=== PATIENT | female | born 1965 | race Caucasian/White ===

== ENCOUNTER 2016-09-23 05:59 | Day surgery (SDC) | payer OTHER ==
[2016-09-23 06:15] VITALS: O2SAT 98
[2016-09-23] MEDS ORDERED: Lactated Ringers 1,000 ML IV SCH (06:30)
[2016-09-23 08:04] VITALS: PULSE 60
[2016-09-23 08:20] VITALS: BP 109/72
--- NOTE | 2016-09-23 08:46 | OP ---
SURGERY DATE: 09/23/16 SURGERY TIME: 709 PREOPERATIVE DIAGNOSIS: 1. SCREENING COLONOSCOPY. POSTOPERATIVE DIAGNOSIS: 1. NORMAL COLON. PROCEDURE: 1. Colonoscopy. SURGEON: Dr. Santos King. ANESTHESIA: MAC by Eron Lu CRNA. SPECIMENS: None. ESTIMATED BLOOD LOSS: None. DESCRIPTION OF PROCEDURE: After informed written consent was obtained, the patient was taken to the endoscopy suite. She underwent monitored anesthesia and a digital rectal exam showed normal sphincter tone and no internal lesions. The scope was inserted in the rectum and sequentially the entire colonic mucosa was traversed. The level of the cecum was reached and verified with direct visualization of the ileocecal valve. Upon withdrawal, careful mucosal inspection revealed no obvious mucosal abnormalities. Prior to withdrawal, retroflexion was performed within normal limits. The prep was noted to be good. The scope was removed and the patient was transferred to the recovery room in excellent condition. I have advised she have a 10 year follow-up unless clinical symptoms warrant sooner evaluation. Thank you, Dr. Allen, for the opportunity to participate in this pleasant lady's care.
[2016-09-23] MEDS ORDERED: Versed 2 MG/2 ML Injection IV ONE (16:06)
[2016-09-23] MEDS ORDERED: SUBLIMAZE 250 MCG/5 ML IJ ONE (16:06)
== END 2016-09-23 08:34 | disposition home or self-care (01) ==
LOC: SDC 05:59
PROVIDERS: ATTEND Family Medicine
PROC: 0DJD8ZZ Inspection of Lower Intestinal Tract, Via Natural or Artificial Opening Endoscopic (ICD-10-PCS; principal; 2016-09-23)
DX: Z12.11 Encounter for screening for malignant neoplasm of colon (principal)
CPT/HCPCS: 00810; J2250; J3010